=== PATIENT | male | born 1955 | race Caucasian/White ===

== ENCOUNTER 2016-11-19 18:55 | Emergency (ER) | payer BC, OTHER ==
[~2016-11-19] VITALS: Ht 180.3 cm; Wt 90.7 kg
[2016-11-19 18:56] VITALS: BP 151/85
[2016-11-19] MEDS ORDERED: MULTCAP12 PO (19:13)
[2016-11-19] MEDS ORDERED: CLINDAMYCIN 150 MG CAP PO ONE (20:15)
[2016-11-19] MEDS ORDERED: CLEO300C2 PO (20:15)
== END 2016-11-19 20:31 | disposition home or self-care (01) ==
LOC: M ED 20:08
DX: L03.312 Cellulitis of back [any part except buttock and flank] (principal); R21 Rash and other nonspecific skin eruption; F17.200 Nicotine dependence, unspecified, uncomplicated; Z79.899 Other long term (current) drug therapy